=== PATIENT | female | born 1980 | race Caucasian/White ===

== ENCOUNTER 2019-02-16 16:37 | Emergency (ER) | payer BC, OTHER ==
[2019-02-16 16:52] VITALS: BP 167/76
--- NOTE | 2019-02-16 17:47 | UC ---
Throat Pain/Nasal Fredy HPI - HPI Summary HPI Summary: The patient is a 38-year-old female with a 4-5 day history of sore throat. Initially she was feverish. She denies any headache or myalgias. Her throat pain has been decreasing. Today she had left upper lip edema. The lip edema has resolved markedly with Benadryl. She has no nausea vomiting or diarrhea. She denies any chest pain or shortness of breath. She has no UTI symptoms. - History of Current Complaint Chief Complaint: UCGeneralIllness Stated Complaint: SORE THROAT, LIP SWELLING Time Seen by Provider: 02/16/19 17:28 Hx Last Menstrual Period: 3 weeks Onset/Duration: Gradual Onset, Lasting Days - 5-6 Severity: Moderate Pain Intensity: 5 Pain Scale Used: 0-10 Numeric Associated Signs & Symptoms: Positive: Negative - Allergies/Home Medications Allergies/Adverse Reactions: Allergies Allergy/AdvReac Type Severity Reaction Status Date / Time amoxicillin Allergy Hives Verified 02/16/19 16:53 Penicillins Allergy Hives Verified 02/16/19 16:53 pineapple Allergy Anaphylatic Verified 02/16/19 16:53 Shock ivory soap Allergy Hives Uncoded 02/16/19 16:53 Home Medications: Home Medications Etonogest/Eth.estradiol (Nf) [Nuvaring Vaginal Ring] 1 each VAGINAL .SEE COMMENTS 02/16/19 [History Confirmed 02/16/19] PMH/Surg Hx/FS Hx/Imm Hx Previously Healthy: Yes - Surgical History Surgical History: None - Family History Known Family History: Positive: Hypertension - Social History Alcohol Use: Occasionally Substance Use Type: None Smoking Status (MU): Never Smoked Tobacco Have You Smoked in the Last Year: No - Immunization History Most Recent Influenza Vaccination: 07/19 Most Recent Tetanus Shot: 05/25/13 Most Recent Pneumonia Vaccination: unsure Review of Systems All Other Systems Reviewed And Are Negative: Yes Constitutional: Positive: Fever Skin: Positive: Negative Eyes: Positive: Negative ENT: Positive: Sore Throat Respiratory: Positive: Negative Cardiovascular: Positive: Negative Gastrointestinal: Positive: Negative Genitourinary: Positive: Negative Motor: Positive: Negative Neurovascular: Positive: Negative Musculoskeletal: Positive: Negative Neurological: Positive: Negative Psychological: Positive: Negative Physical Exam Triage Information Reviewed: Yes Appearance: Well-Appearing, No Pain Distress, Well-Nourished Vital Signs: Initial Vital Signs Temp 99.2 F 02/16/19 16:47 Pulse 94 02/16/19 16:47 Resp 18 02/16/19 16:47 BP 167/76 02/16/19 16:47 Pulse Ox 100 02/16/19 16:47 Vital Signs Reviewed: Yes Eyes: Positive: Conjunctiva Clear ENT: Positive: Hearing grossly normal, Tonsillar swelling, Uvula midline. Negative: Nasal congestion, Nasal drainage, Tonsillar exudate, Trismus, Muffled voice, Hoarse voice Dental Exam: Normal Dental: Positive: Other: - no lip edema or sores Neck: Positive: Supple, Nontender, Enlarged Nodes @ - ant cerv Respiratory: Positive: Lungs clear, Normal breath sounds, No respiratory distress, No accessory muscle use Cardiovascular: Positive: RRR, No Murmur Musculoskeletal: Positive: ROM Intact, No Edema Neurological: Positive: Alert Psychological Exam: Normal Skin Exam: Normal Diagnostics - Laboratory Lab Results: strep (+) Throat Pain/Nasal Course/Dx - Course Course Of Treatment: had a rash with amox - Differential Dx/Diagnosis Provider Diagnosis: Strep throat Discharge ED - Sign-Out/Discharge Documenting (check all that apply): Patient Departure All imaging exams completed and their final reports reviewed: No Studies - Discharge Plan Condition: Stable Disposition: HOME Prescriptions: Cephalexin SUSP* [Keflex SUSP 250 MG/5 ML*] 500 mg PO BID 10 Days #200 oral.susp Patient Education Materials: Strep Throat (ED) Referrals: [facility] [place] [facility] [Outside] - If Needed Additional Instructions: recheck in 3-4 days if not better BP high her today recheck in 2-6 weeks - Billing Disposition and Condition Condition: STABLE Disposition: Home
[2019-02-16] MEDS ORDERED: Ondansetron INJ* 2 MG/ML VIAL IV ONE (17:49)
== END 2019-02-16 18:05 | disposition home or self-care (01) ==
LOC: UCEAST 16:37
DX: J02.0 Streptococcal pharyngitis (principal); Z88.0 Allergy status to penicillin; Z91.09 Other allergy status, other than to drugs and biological substances; Z91.018 Allergy to other foods
CPT/HCPCS: 87651; 99212; G0463